=== PATIENT | female | born 1995 | race Two or more races ===

== ENCOUNTER 2017-03-22 08:05 | Inpatient (IN) | payer MEDICAID ==
[2017-03-22 08:56] VITALS: BMI 36.8
[2017-03-22] MEDS ORDERED: Lactated Ringer's 1,000 ML IV SCH (09:00)
--- NOTE | 2017-03-22 09:24 | OBADHP ---
Datetime: 03/22/2017 08:15 Admit Comment, IP Provider: 21yo with IUP at 40wks presents here today with pelvic and contract ion pains which started at 2 am today. She denies any VB or LOF. Pt had a course of [place] due to a h /o a midtrimester loss and was on Aspirin 81mg for a protein S deficiency. TOCO- Q 2-3, FHR- Category 1, Cx- 6/90/0. Vertex-presentation. Assessment: IUP at Term in Active Labor. Admit to LND for labor monitoring. Sequential compression devices. Pelvic Type - PN: Adequate Extremities - PN: Normal Abdomen - PN: Normal Back - PN: Normal Breast - PN: Normal Lungs - PN: Normal Heart - PN: Normal Thyroid - PN: Normal Neurologic - PN: Normal HEENT - PN: Normal General - PN: Normal Presentation-Admit: Vertex FHR - Baseline A Provider: 140s Membranes, Provider: Intact Comments, ACOG Physical Exam: Abd: Soft, NT, BS -present Gestation - Est Wks by US: 40.0 Vital Signs Provider: Reviewed IP Chief Complaint: Uterine contractions; Maternal discomfort NICHD Variability Prov Fetus A: Moderate 6-25bpm NICHD Accel Fetus A IP Provider: [id number] FHR Category Provider Fetus A: Category I NICHD Decel Fetus A IP Provider: None Dilatation, Provider: 6 Effacement, Provider: 90 Station, Provider: 0 Genitourinary Exam: Normal DTRs - PN: Normal EGA AdmitDate IP: 40.0 IP Adm Impression: Term, intrauterine ; Active labor IP Admit Plan: Admit to unit; Initiate labor protocol
[2017-03-22 09:29] LABS: BASO % 0.4 % (0.0-2.0); EOS % 0.3 % (0.0-4.0); HEMATOCRIT 37.7 % (34.0-47.0); LYMPH # 1.1 K/uL (1.0-4.3); LYMPH % 11.3 % (20.0-40.0); MEAN CELL VOLUME 86.2 fL (81.0-99.0); MEAN CORPUSCULAR HEMOGLOBIN 29.3 pg (27.0-31.0); MEAN CORPUSCULAR HGB CONC 33.9 g/dL (33.0-37.0); MONO # 0.4 K/uL (0.0-0.8); MONO % 4.5 % (0.0-10.0); RED CELL DISTRIBUTION WIDTH 13.8 % (11.5-14.5); WHITE BLOOD COUNT 9.5 K/uL (4.8-10.8)
[2017-03-22] MEDS ORDERED: Bupivacaine HCl 0.25% PF (10 ml) Inj ONE (09:33)
[2017-03-22] MEDS ORDERED: Bupivacaine 0.125%/FentaNYL 200 ML EPI ONE (09:34)
[2017-03-22 09:38] LABS: CHLORIDE 101 mmol/L (98-107); SODIUM 131 mmol/L (132-148)
[2017-03-22 09:39] LABS: POTASSIUM 4.1 mmol/L (3.6-5.2); RBC URINE 5 /hpf (0-3); URINE BACTERIA RARE (<OCC); URINE BILIRUBIN NEGATIVE (NEGATIVE); URINE BLOOD 2+ (NEGATIVE); URINE COLOR Straw (YELLOW); URINE GLUCOSE (UA) NORMAL (Normal); URINE KETONE NEGATIVE (NEGATIVE); URINE LEUKOCYTE ESTERASE NEG Leu/uL (Negative); URINE PROTEIN NEGATIVE (NEGATIVE); URINE UROBILINOGEN NORMAL mg/dL (0.2-1.0); WBC URINE 4 /hpf (0-5)
[2017-03-22 09:40] LABS: GFR AFRICAN-AMERICAN > 60
[2017-03-22 09:41] LABS: ALKALINE PHOSPHATASE 158 U/L (38-126); ALT/SGPT 20 U/L (9-52); AST/SGOT 19 U/L (14-36); BILIRUBIN,TOTAL 0.4 mg/dL (0.2-1.3); BLOOD UREA NITROGEN 7 mg/dL (7-17); CARBON DIOXIDE 18 mmol/L (22-30); GLUCOSE,RANDOM 97 mg/dL (65-105); TOTAL PROTEIN 7.6 g/dL (6.3-8.3)
[2017-03-22 09:42] LABS: CALCIUM 9.3 mg/dl (8.6-10.4)
[2017-03-22] MEDS ORDERED: Oxytocin 30 UNIT 30 UNITS/500 ML BAG IV SCH (13:30)
[2017-03-22] MEDS ORDERED: Oxycodone/Acetaminophen 5/325 mg Tab PO PRN ×2 (16:12)
[2017-03-22] MEDS ORDERED: Simethicone 80 mg Chewtab PO PRN (16:14)
--- NOTE | 2017-03-22 16:14 | OBDS ---
DELIVERY PERSONNEL Delivery Doctor: Devyn Sanchez MD Cougar Hunter: Cristel Sheehan RN Anesthesiologist: dr pepe Resident: aline monterroso MATERNAL INFORMATION Delivery Anesthesia: Epidural Medications in Delivery: none Estimated Blood Loss (ml): 300 Placenta Cultured: No Maternal Complications: None Provider Comments: Uncomplicated spontaneous vaginal delivery of a viable female infant with BW of 7 Ibs 0 ozs and scores of 9 and 9. LABOR SUMMARY EDC: 03/22/2017 00:00 No. Babies in Womb: 1 Attempted: No Labor Anesthesia: Epidural LABOR INFORMATION Onset of Labor: 03/22/2017 02:00 Complete Dilatation: 03/22/2017 15:20 Oxytocin: Augmentation Group B Beta Strep: Negative Steroids Given: None Reason Steroids Not Administered: Not Applicable MEMBRANES Membranes Rupture Method: Artificial Rupture of Membranes: 03/22/2017 12:46 Length of Rupture (hrs): 2.90 Amniotic Fluid Color: Light Meconium Amniotic Fluid Amount: Small Amniotic Fluid Odor: Normal STAGES OF LABOR Stage 1 hrs: 13 Stage 1 min: 20 Stage 2 hrs: 0 Stage 2 min: 20 Stage 3 hrs: 0 Stage 3 min: 6 Total Time in Labor hrs: 13 Total Time in Labor min: 46 VAGINAL DELIVERY Episiotomy: None Laceration Extension: Second Degree Laceration Type: Perineal Laceration Repair: Yes Initial Vag Sponge Count: 10 Final Vag Sponge Count: 10 Initial Vag Sharps Count: 1 Final Vag Sharps Count: 1 Sponge Count Correct: Yes; Vaginal Sweep Performed Sharps Count Correct: Yes Count Comment: md notified of count BABY A INFORMATION Infant Delivery Date/Time: 03/22/2017 15:40 Method of Delivery: Vaginal Born in Route : No : N/A Forceps: N/A Vacuum Extraction: N/A Shoulder Dystocia : No SHOULDER DYSTOCIA BABY A Infant Delivery Date/Time: 03/22/2017 15:40 PRESENTATION/POSITION BABY A Presentation: Cephalic Cephalic Presentation: Vertex Vertex Position: Left Occipital Anterior Breech Presentation: N/A PLACENTA INFORMATION BABY A Placenta Delivery Time : 03/22/2017 15:46 Placenta Method of Delivery: Spontaneous Placenta Status: Delivered SCORES BABY A Heart Rate 1 min: >100 bpm Resp Effort 1 min: Good Cry Reflex Irritability 1 min: Cough or Sneeze or Pulls Away Muscle Tone 1 min: Active Motion Color 1 min: Body [place], Extremities Blue Resuscitation Effort 1 min: Tactile Stimulation SCORE 1 MIN: 9 Heart Rate 5 min: >100 bpm Resp Effort 5 min: Good Cry Reflex Irritability 5 min: Cough or Sneeze or Pulls Away Muscle Tone 5 min: Active Motion Color 5 min: Body [place], Extremities Blue Resuscitation Effort 5 min: Tactile Stimulation SCORE 5 MIN: 9 INFANT INFORMATION BABY A Gestational Age at Delivery: 40.0 Gestational Status: Term Outcome : Liveborn Condition : Stable Infant Sex: Female IDENTIFICATION/MEDS BABY A ID Band Number: [id number] Sensor Applied: Yes Sensor Number: [id number] WEIGHT/LENGTH BABY A Infant Birthweight (gms): 3190 Weight (lb): 7 Weight (oz): 0 Length Inches: 19.00 Infant Length cms: 48.3 CORD INFORMATION BABY A No. Cord Vessels: 3 Nuchal Cord : N/A Cord Blood Taken: Yes Suction: Mouth; Nose
[2017-03-23 08:09] VITALS: RESP 18; O2SAT 99
[2017-03-23] MEDS ORDERED: Benzocaine/Menthol 20%-0.5% Topical Spray (60 ml) TOP PRN (08:24)
[2017-03-23 08:30] LABS: HEMATOCRIT 32.2 % (34.0-47.0); MEAN CELL VOLUME 87.3 fL (81.0-99.0); MEAN CORPUSCULAR HEMOGLOBIN 29.4 pg (27.0-31.0); MEAN CORPUSCULAR HGB CONC 33.7 g/dL (33.0-37.0); MEAN PLATELET VOLUME 9.1 fL (7.2-11.7); RED CELL DISTRIBUTION WIDTH 14.1 % (11.5-14.5); WHITE BLOOD COUNT 11.3 K/uL (4.8-10.8)
--- NOTE | 2017-03-23 20:19 | OBPPN ---
Datetime: 03/23/2017 08:07 PP Pain Prov: Within normal limits PP Nausea Prov: Denies PP Flatus Prov: Yes PP BM Prov: No PP Impression Prov: Normal progression PP Plan Prov: Continue present management PP Progress Note Prov: Patient seen and examined at bedside. Per nursing , no acute events overnight . Patient is doing well, pain is controlled. Patient is ambulating and tolerating diet. Lochia is mod erate. Urinating without difficulty. Passing flatus but no BM. Breast feeding. Denies headaches, dizz iness, cp, palpitations, sob, urinary symptoms. VS: 111/71 101 98.0 Gen: AAOx3 Abd: Soft, appropriately tender, fundus firm at umbilicus Ext: No clubbing, cyanosis, edema; no calf tenderness Labs: 9.5>12.8/37.7<184 F/U CBC B Positive Rubella unknown A/P: 21 yo at 40w s/p with second degree perineal laceration PPD#1 1. Stable, afebrile 2. Pain control - Motrin and Tylenol prn 3. F/U am CBC, rubella status 4. Protein S deficiency on ASA 81mg; will need to refer to body recall instructor for further management 5. Encourage ambulation and hydration 6. Encourage breast feeding 7. Continue routine care 8. Anticipate d/c home tomorrow 9. Plan d/w attending Claudia Staton DO PGY-1 Pt seen and [id number] with Resident and i AGREE WITH THE ABOVE. Vital Signs Provider PP: Reviewed
[2017-03-24 08:28] VITALS: BP 108/68; TEMP 97.9
--- NOTE | 2017-03-24 09:24 | OBPPN ---
Datetime: 03/24/2017 08:14 PP Pain Prov: Within normal limits PP Nausea Prov: Denies PP Flatus Prov: Yes PP BM Prov: No PP Breasts Prov: Normal PP Heart Prov: Normal PP Lungs Prov: Normal PP Abdomen/Uterus Prov: Normal PP Lochia Prov: Normal PP Vulva/Perineum Prov: Normal PP CVA Tenderness Prov: Normal PP Extremities Prov: Normal PP C/S Incision Prov: Not Applicable PP Progress Prov: Normal PP Impression Prov: Normal progression PP Plan Prov: Discharge PP Progress Note Prov: Patient is Sinhala-Speaking, [employer] supervisor services used, ID # was not r ecorded. Patient seen and examined at bedside in the AM. Per nursing, no acute events overnight. Patient i s doing well, pain is controlled. Patient is ambulating and tolerating diet. Lochia is moderate. Uri nating without difficulty. Passing flatus but no BM. Breast feeding. Denies headaches, dizziness, dana sea or vomiting. Gen: AAOx3 Abd: Soft, appropriately tender, fundus firm below the umbilicus Ext: No clubbing, cyanosis, edema; no calf tenderness Labs: H/H 10.8/32.8 B Positive Rubella IgG positive A/P: 21 yo at 40w s/p with second degree perineal laceration 1. Stable, afebrile 2. Pain control - Motrin 3. Protein S deficiency on ASA 81mg; will need to refer to computer designer for further management 4. Continue breast feeding 5. Discharged home today 03/24 Niharika Nelson DO PGY-1 Attending Note: Patient was seen and examined by me with Resident and Medical Student (after histo ry was obtained). With some understanding of [place] and hand signals, evaluation was confirmed. Ane kayley - continue iron supplementation. Patient is clinically stable. Plan: 1) mortar worker consult (patient in [facility] since 07/2016; yet, no care in [facility] over that nnamdi e period) 2) Anticipate discharge home after director of social services Vital Signs Provider PP: Reviewed; Within Normal Limits
--- NOTE | 2017-03-24 09:27 | OBDCSUM ---
Datetime: 03/24/2017 08:12 Discharged to, Provider: Home Follow up at, Provider: power plant operators supervisor of choice Disch Instr Activity: Normal activity Disch Instr Diet: Regular Discharge Instructions, Provider: Routine instructions given Discharge Diagnosis, Provider: Term Delivered Discharge Time: 03/24/2017 08:13 Follow up in weeks, Provider: 6 weeks Contraception discussed, Prov: No Disch Activity Restrictions: No sexual activity; Nothing in vagina - [place], tampons, douche Discharge Diagnosis Prov Other: No care Anemia
[2017-03-24] MEDS ORDERED: Influenza Vaccine 60 mcg/0.5 mL SYR (4YR UP) IM ONE (09:45)
--- NOTE | 2017-03-24 12:06 | OBPPN ---
Datetime: 03/24/2017 08:14 PP Progress Note Prov: Patient is Czech-Speaking, [employer] director sales services used, ID # was not r ecorded. Patient seen and examined at bedside in the AM. Per nursing, no acute events overnight. Patient i s doing well, pain is controlled. Patient is ambulating and tolerating diet. Lochia is moderate. Uri nating without difficulty. Passing flatus but no BM. Breast feeding. Denies headaches, dizziness, dana sea or vomiting. Gen: AAOx3 Abd: Soft, appropriately tender, fundus firm below the umbilicus Ext: No clubbing, cyanosis, edema; no calf tenderness Labs: H/H 10.8/32.8 B Positive Rubella IgG positive A/P: 21 yo at 40w s/p with second degree perineal laceration 1. Stable, afebrile 2. Pain control - Motrin 3. Protein S deficiency on ASA 81mg; will need to refer to supervisor cytology for further management 4. Continue breast feeding 5. Discharged home today 03/24 Niharika Nelson DO PGY-1 Attending Note: Patient was seen and examined by me with Resident and Medical Student (after histo ry was obtained). With some understanding of Nauruan and hand signals, evaluation was confirmed. Ane kayley - continue iron supplementation. Patient is clinically stable. Plan: 1) ditch worker consult (patient in [facility] since 07/2016; yet, no care in [facility] over that nnamdi e period) 2) Anticipate discharge home after geriatric social worker Addendum:1205 hours - patient did have care - started November,, total of 7 visits
[2017-03-24 21:38] VITALS: PULSE 82
== END 2017-03-24 15:05 | disposition home or self-care (01) | DRG 373 ==
LOC: C.EROB 08:05 → C.4D 08:55 → C.4M 17:40
PROVIDERS: ADMIT Obstetrics & Gynecology; ATTEND Obstetrics & Gynecology
PROC: 10E0XZZ Delivery of Products of Conception, External Approach (ICD-10-PCS; principal; 2017-03-22)
PROC: 0KQM0ZZ Repair Perineum Muscle, Open Approach (ICD-10-PCS; 2017-03-22)
DX: O99.02 Anemia complicating childbirth (principal); D68.59 Other primary thrombophilia; O70.1 Second degree perineal laceration during delivery; D64.9 Anemia, unspecified; O99.12 Other diseases of the blood and blood-forming organs and certain disorders involving the immune mechanism complicating childbirth; Z3A.40 40 weeks gestation of pregnancy; Z37.0 Single live birth; Z79.82 Long term (current) use of aspirin